=== PATIENT | female | born 1965 | race Caucasian/White ===

== ENCOUNTER → 2016-09-02 | Outpatient (CLI) | payer OTHER | LOC: GIMAGING 14:43 | PROVIDERS: ATTEND Nurse Practitioner Acute Care | DX: M25.572 Pain in left ankle and joints of left foot (principal) | CPT/HCPCS: 73610-PO ==

== ENCOUNTER → 2016-09-25 | Outpatient (CLI) | payer OTHER | LOC: FIMAGING 11:52 | PROVIDERS: ATTEND Obstetrics & Gynecology | DX: Z12.31 Encounter for screening mammogram for malignant neoplasm of breast (principal); Z80.3 Family history of malignant neoplasm of breast | CPT/HCPCS: G0202 ==

== ENCOUNTER 2017-02-17 11:31 | Emergency (ER) | payer OTHER ==
[2017-02-17 12:54] LABS: PLATELET COUNT 311 10^3/uL (150-400)
--- NOTE | 2017-02-17 13:29 | EDPHY ---
General - History Smoking Status: Never smoked Narrative: CHIEF COMPLAINT: Suicidal, depressed HISTORY OF PRESENT ILLNESS: Patient presents with increasing thoughts of depression and self-harm. She has been cutting her wrist due to this. She expresses or intent to do so further if she goes home. She does feel like she wants to due to increasing depression. She denies taking any pills. She admits to previous episodes of cutting herself due to depression, anxiety PTSD. Her psychiatrist is in [place], she visits with her on the phone weekly. She has not established anyone here yet. She has been in [place] for short period of time. No other associated complaints or modifying factors. PSYCHIATRIC DIAGNOSES: Depression, anxiety, PTSD PRIOR PSYCHIATRIC EVALUATIONS: Multiple in [place] M1/DETAINER: At time of examination REVIEW OF SYSTEMS: Ten systems reviewed and are negative unless otherwise noted in the HPI EXAMINATION General Appearance: Alert, no distress but consolable Head: normocephalic, atraumatic Eyes: Pupils equal and round, no conjunctival pallor or injection ENT, Mouth: Mucous membranes moist Neck: Normal inspection, supple, non-tender Respiratory: Lungs are clear to auscultation. No wheeze, rhonchi or crackles Cardiovascular: Regular rate and rhythm. No murmur Gastrointestinal: Abdomen is soft and nontender Back: non-tender, no bony abnormalities Neurological: A&O, nonfocal, normal gait Skin: Warm and dry, no rash Extremities: Nontender, no pedal edema Psychiatric: Depressed mood. Tearful. Admits to suicidal ideation with cutting to the left and right forearms today. Denies pill ingestion. DIFFERENTIAL DIAGNOSES: Including but not limited to suicidal ideation, depression, major depression disorder, PTSD, anxiety MDM: 12:45 p.m. Suicidal ideation with depression and attempt to harm herself by cutting her wrist. These are superficial and represent likely hesitancy. She admits to this with the plan of doing so she goes home. She previously has done so as well. No ingestion of pills. She sees a therapist and psychiatrist back in [place] but no locally. I placed her on an M1 hold, signed by Dr. Cihno. Proceed with clearance 1:20 p.m. Laboratory studies are negative. She is now medically cleared for evaluation. 3:00 p.m. Patient has been evaluated by Pur[facility] with [facility]. She recommends inpatient care. She is attempting to find a location for admission. 4:12 p.m. Patient re-evaluated. She is resting comfortably. Still waiting placement. cooperative and non combative. 4:20 p.m. At this time I have discussed the care with Dr. Mojica. He will assume care the patient. Please see his note for final disposition. She is pending placement for inpatient psychiatric care (Zander Santacruz) Medical Decision MakinAM: This patient has been accepted at [facility] by Dr. Coleman. EMTALA filled out. Appropriate Transfer will be set up. (Juan Luis Price) - Objective Vital Signs: Initial Vital Signs Temperature (C) 98.4 F 02/17/17 11:38 Heart Rate 94 02/17/17 11:38 Respiratory Rate 18 02/17/17 11:38 Blood Pressure 154/116 H 02/17/17 11:38 O2 Sat (%) 95 02/17/17 11:38 O2 Delivery Mode Room Air Allergies/Adverse Reactions: No Known Allergies Allergy (Unverified 02/17/17 11:36) Home Medications: Medication Instructions Recorded Abilify 02/17/17 KLONOPIN 02/17/17 Neurontin 02/17/17 Seroquel 02/17/17 Wellbutrin 100mg SR (*) 02/17/17 Laboratory Results: Laboratory Results 02/17/17 12:43 02/17/17 12:43 Medications Given: Discontinued Medications Acetaminophen (Tylenol) 1,000 mg PO EDNOW ONE Stop: 02/17/17 14:22 Last Admin: 02/17/17 14:27 Dose: 1,000 mg Gabapentin (Neurontin) 300 mg PO EDNOW ONE Stop: 02/18/17 01:46 Last Admin: 02/18/17 02:14 Dose: 300 mg Ibuprofen (Motrin) 600 mg PO EDNOW ONE Stop: 02/17/17 20:17 Last Admin: 02/17/17 20:19 Dose: 600 mg Lorazepam (Ativan) 1 mg PO EDNOW ONE Stop: 02/18/17 01:46 Last Admin: 02/18/17 02:14 Dose: 1 mg Quetiapine Fumarate (Seroquel) 75 mg PO EDNOW ONE Stop: 02/18/17 02:16 Last Admin: 02/18/17 02:14 Dose: 25 mg Departure - Departure Disposition: Acute Care Hospital Not [facility] Clinical Impression: Suicidal ideation, Severe major depression Condition: Fair Referrals: [facility] [Other] - As per Instructions
--- NOTE | 2017-02-17 13:29 | EDPHY ---
General - History Smoking Status: Never smoked Narrative: CHIEF COMPLAINT: Suicidal, depressed HISTORY OF PRESENT ILLNESS: Patient presents with increasing thoughts of depression and self-harm. She has been cutting her wrist due to this. She expresses or intent to do so further if she goes home. She does feel like she wants to due to increasing depression. She denies taking any pills. She admits to previous episodes of cutting herself due to depression, anxiety PTSD. Her psychiatrist is in [place], she visits with her on the phone weekly. She has not established anyone here yet. She has been in [place] for short period of time. No other associated complaints or modifying factors. PSYCHIATRIC DIAGNOSES: Depression, anxiety, PTSD PRIOR PSYCHIATRIC EVALUATIONS: Multiple in [place] M1/DETAINER: At time of examination REVIEW OF SYSTEMS: Ten systems reviewed and are negative unless otherwise noted in the HPI EXAMINATION General Appearance: Alert, no distress but consolable Head: normocephalic, atraumatic Eyes: Pupils equal and round, no conjunctival pallor or injection ENT, Mouth: Mucous membranes moist Neck: Normal inspection, supple, non-tender Respiratory: Lungs are clear to auscultation. No wheeze, rhonchi or crackles Cardiovascular: Regular rate and rhythm. No murmur Gastrointestinal: Abdomen is soft and nontender Back: non-tender, no bony abnormalities Neurological: A&O, nonfocal, normal gait Skin: Warm and dry, no rash Extremities: Nontender, no pedal edema Psychiatric: Depressed mood. Tearful. Admits to suicidal ideation with cutting to the left and right forearms today. Denies pill ingestion. DIFFERENTIAL DIAGNOSES: Including but not limited to suicidal ideation, depression, major depression disorder, PTSD, anxiety MDM: 12:45 p.m. Suicidal ideation with depression and attempt to harm herself by cutting her wrist. These are superficial and represent likely hesitancy. She admits to this with the plan of doing so she goes home. She previously has done so as well. No ingestion of pills. She sees a therapist and psychiatrist back in [place] but no locally. I placed her on an M1 hold, signed by Dr. Chino. Proceed with clearance 1:20 p.m. Laboratory studies are negative. She is now medically cleared for evaluation. 3:00 p.m. Patient has been evaluated by Purvi with [facility]. She recommends inpatient care. She is attempting to find a location for admission. 4:12 p.m. Patient re-evaluated. She is resting comfortably. Still waiting placement. cooperative and non combative. 4:20 p.m. At this time I have discussed the care with Dr. Mojica. He will assume care the patient. Please see his note for final disposition. She is pending placement for inpatient psychiatric care (Zander Santacruz) Medical Decision MakinAM: This patient has been accepted at [place] by Dr. Coleman. EMTALA filled out. Appropriate Transfer will be set up. (Juan Luis Price) - Objective Vital Signs: Initial Vital Signs Temperature (C) 98.4 F 02/17/17 11:38 Heart Rate 94 02/17/17 11:38 Respiratory Rate 18 02/17/17 11:38 Blood Pressure 154/116 H 02/17/17 11:38 O2 Sat (%) 95 02/17/17 11:38 O2 Delivery Mode Room Air Allergies/Adverse Reactions: No Known Allergies Allergy (Unverified 02/17/17 11:36) Home Medications: Medication Instructions Recorded Abilify 02/17/17 KLONOPIN 02/17/17 Neurontin 02/17/17 Seroquel 02/17/17 Wellbutrin 100mg SR (*) 02/17/17 Laboratory Results: Laboratory Results 02/17/17 12:43 02/17/17 12:43 Medications Given: Discontinued Medications Acetaminophen (Tylenol) 1,000 mg PO EDNOW ONE Stop: 02/17/17 14:22 Last Admin: 02/17/17 14:27 Dose: 1,000 mg Gabapentin (Neurontin) 300 mg PO EDNOW ONE Stop: 02/18/17 01:46 Last Admin: 02/18/17 02:14 Dose: 300 mg Ibuprofen (Motrin) 600 mg PO EDNOW ONE Stop: 02/17/17 20:17 Last Admin: 02/17/17 20:19 Dose: 600 mg Lorazepam (Ativan) 1 mg PO EDNOW ONE Stop: 02/18/17 01:46 Last Admin: 02/18/17 02:14 Dose: 1 mg Quetiapine Fumarate (Seroquel) 75 mg PO EDNOW ONE Stop: 02/18/17 02:16 Last Admin: 02/18/17 02:14 Dose: 25 mg Departure - Departure Disposition: Acute Care Hospital Not [facility] Clinical Impression: Suicidal ideation, Severe major depression Condition: Fair Referrals: [facility] [Other] - As per Instructions
[2017-02-17] MEDS ORDERED: ACETAMINOPHEN 500 MG TAB PO ONE (14:21)
[2017-02-17] MEDS ORDERED: IBUPROFEN 600 MG TAB PO ONE (20:16)
[2017-02-18 00:21] VITALS: TEMP 97.9
[2017-02-18] MEDS ORDERED: LORazepam 1 MG TAB PO ONE (01:45)
[2017-02-18] MEDS ORDERED: QUEtiapine FUMARATE 50 MG TAB PO ONE (01:45)
[2017-02-18] MEDS ORDERED: GABAPENTIN 300 MG CAP PO ONE (01:45)
[2017-02-18 01:49] VITALS: BP 156/92; PULSE 86; RESP 66; O2SAT 18
[2017-02-18] MEDS ORDERED: QUEtiapine FUMARATE 25 MG TAB PO ONE (02:15)
== END 2017-02-18 02:32 | disposition short-term general hospital (02) ==
LOC: EEVIPCON 11:31
DX: R45.851 Suicidal ideations (principal); F32.2 Major depressive disorder, single episode, severe without psychotic features
CPT/HCPCS: 80305; G0480

== ENCOUNTER → 2017-03-25 | Outpatient (CLI) | payer OTHER | LOC: FIMAGING 12:04 | PROVIDERS: ATTEND Internal Medicine | DX: N60.01 Solitary cyst of right breast (principal) ==

== ENCOUNTER → 2017-06-12 | Outpatient (CLI) | payer OTHER, MEDICAID | LOC: FIMAGING 11:01 | PROVIDERS: ATTEND Internal Medicine | DX: Z13.820 Encounter for screening for osteoporosis (principal); M85.89 Other specified disorders of bone density and structure, multiple sites ==

== ENCOUNTER → 2018-10-12 | Outpatient (CLI) | payer OTHER, MEDICAID | LOC: FIMAGING 11:52 ==